=== PATIENT | female | born 1945 | race Caucasian/White ===

== ENCOUNTER 2022-03-01 10:09 | Outpatient (REF) | payer MEDICARE, MEDICAID, SELFPAY ==
--- NOTE | ~2022-03-01 | XR_ITS ---
EXAMINATION: XR HIP, LEFT CLINICAL INFORMATION: Pain left hip COMPARISON: None TECHNIQUE: Two views of the left hip. FINDINGS: Bones and soft tissues are normal. No fracture. Alignment is anatomic. Hip joint space is maintained. XR/XR hip LT w [id number] IMPRESSION: Unremarkable left hip.
== END 2022-03-01 10:10 | disposition home or self-care (01) ==
LOC: HO.HOSX 10:09
PROVIDERS: Visit Provider Physician Assistant
DX: M25.552 Pain in left hip (principal); M54.16 Radiculopathy, lumbar region
CPT/HCPCS: 73502; 99212

== ENCOUNTER 2022-04-01 16:37 | Outpatient (REF) | payer OTHER, SELFPAY ==
--- NOTE | ~2022-04-01 | XR_ITS ---
EXAMINATION: XR ANKLE, LEFT CLINICAL INFORMATION: Left ankle pain. COMPARISON: Left foot 12/28/2014. TECHNIQUE: AP, lateral, and mortise views of the left ankle. FINDINGS: On the dorsal surface of the talus, there is an ovoid bony fragment seen which was not noted in 2015. No minimal significant soft tissue swelling is seen in this area. A small ankle joint effusion is present. The ankle mortise is normal. A plantar calcaneal spur is present. XR/XR ankle LT min 3V IMPRESSION: Small bony fragment seen along the dorsal surface of the talus. This could represent an acute, or more likely subacute, avulsion fracture. Please correlate with the presence of point tenderness in this region. A small ankle joint effusion is present. Plantar calcaneal spur.
== END 2022-04-01 16:38 | disposition home or self-care (01) ==
LOC: HO.XRAY 16:37
PROVIDERS: Visit Provider Student in an Organized Health Care Education/Training Program
DX: M25.572 Pain in left ankle and joints of left foot (principal)
CPT/HCPCS: 73610